=== PATIENT | male | born 1965 | race Hispanic/Latino ===

== ENCOUNTER → 2018-11-22 | Day surgery (SDC) | payer BC ==
--- NOTE | 2018-11-18 09:18 | Diagnostic Imaging Report ---
Exam: KUB - 2 views Indication: Preoperative Comparison: None Findings: 9 mm calculus at the left renal midpole. Scattered 2 mm left lower pole calculi. No radiographically apparent right renal calculi. Nonobstructive bowel gas pattern. Osseous structures appear unremarkable. No free air. Impression: Left renal calculi, most notably 9 mm calculus at the left renal midpole. Signed by: Quentin Bailey MD on 11/18/2018 9:15 AM
[~2018-11-22] MED LIST: CEFTRIAXONE SOD 1 GM/NS 50 ML 50 ML IV ONE; DEXAMETHASONE SOD PHOS INJ 4 MG/ML VIAL ONE; LIDOCAINE HCL 2% LOCAL INJ 5 ML SDV VIAL INJ ONE; MIDAZOLAM HCL 2 MG/2 ML VIAL ONE; MULTI-VITAMIN1 EACH PO; ONDANSETRON HCL INJ 2MG/ML 2ML 2 MG/ML VIAL ONE; PROPOFOL IV EMULSION 10 MG/ML 20 ML VIAL ONE; SEVOFLURANE INHAL SOLN 250 ML PEN BTL ONE
[2018-11-22 09:58] VITALS: BP 131/87
--- NOTE | 2018-11-22 12:50 | Operative Report ---
DATE OF PROCEDURE: 11/22/2018 SURGEON: Stan Michelle MD PREOPERATIVE DIAGNOSIS: Left 8 mm mid renal calculus. POSTOPERATIVE DIAGNOSIS: Left 8 mm mid renal calculus. PROCEDURES: 1. Staged shock wave lithotripsy, left side. 2. Supervision of fluoroscopy. ANESTHESIA: General. ESTIMATED BLOOD LOSS: Minimal. COMPLICATIONS: None. INDICATIONS: Mr. Stewart is a very pleasant 53-year-old male with intermittently symptomatic left-sided kidney stone. He and I had a long discussion about alternatives, risks, and benefits of shockwave lithotripsy, ureteroscopy, percutaneous surgery or open surgery. He voiced understanding of the options, alternatives, risks, and benefits and elected to proceed. PROCEDURE IN DETAIL: After informed consent was obtained, the patient was taken to the operative suite, placed in the supine on the operating table, and underwent general anesthesia by Anesthesia Service. Stone was localized in the X, Y and Z planes. A total of 3000 shocks on maximum power setting of 6 were delivered to the stone. The patient tolerated the procedure well and transported to the recovery room in excellent condition. Supervision of fluoroscopy: I was present for the entire procedure and supervised fluoroscopy. There was no radiologist present. Dosages per treatment report. Stan Michelle MD ES/MODL /[id number]
== END | disposition home or self-care (01) ==
LOC: OR 06:06
PROVIDERS: ATTEND Urology
DX: N13.2 Hydronephrosis with renal and ureteral calculous obstruction (principal); R31.0 Gross hematuria; Z01.810 Encounter for preprocedural cardiovascular examination; Z01.818 Encounter for other preprocedural examination
CPT/HCPCS: 50590; 74018; 93005; J0696; J1100; J2001; J2250; J2405; J2704